=== PATIENT | male | born 1935 | race African-American/Black ===

== ENCOUNTER 2017-08-26 12:21 | Emergency (ER) | payer MEDICARE, MEDICAID ==
[~2017-08-26] VITALS: Ht 175.3 cm; Wt 61.0 kg
[2017-08-26 13:08] VITALS: BP 137/53
[2017-08-26] MEDS ORDERED: SODIUM CHLORIDE 0.9% 1,000 ML IV ONE (14:14)
[2017-08-26 14:36] LABS: BASOPHILS % 0.6 % (0.0-2.0); EOSINOPHILS % 0.2 % (0.0-5.0); HEMATOCRIT. 41.2 % (42.0-52.0); HEMOGLOBIN. 13.6 g/dL (14.0-18.0); LYMPHOCYTES % 26.5 % (20.0-50.0); MEAN CORPUSCULAR HEMOGLOBIN 29.4 pg (28.0-32.0); MEAN CORPUSCULAR VOLUME 89.1 fL (80.0-94.0); MEAN PLATELET VOLUME 8.9 fl (7.4-10.4); MONOCYTES % 14.6 % (2.0-8.0); NEUTROPHILS % 58.1 % (40.0-76.0); PLATELET 193 x1000/uL (130-400); RED BLOOD CELL COUNT 4.62 mill/uL (4.7-6.1); RED CELL DISTRIBUTION WIDTH 13.6 % (11.6-14.6)
[2017-08-26 14:40] LABS: INR 1.2; PROTHROMBIN TIME 12.3 sec (9.4-11.6)
[2017-08-26 14:50] LABS: CHLORIDE 102 mEq/L (98-107); TROPONIN I 0.05 ng/mL (0.00-0.04)
== END 2017-08-26 15:20 | disposition left against medical advice (07) ==
LOC: ER 15:04
DX: R41.82 Altered mental status, unspecified (principal); E83.52 Hypercalcemia; D64.9 Anemia, unspecified; R79.89 Other specified abnormal findings of blood chemistry; R74.8 Abnormal levels of other serum enzymes; F12.10 Cannabis abuse, uncomplicated; R79.1 Abnormal coagulation profile
CPT/HCPCS: 36415; 71045; 80053; 83880; 84484; 85025; 85610; 93005; 96360; 99285; J7030